=== PATIENT | male | born 2000 | race Caucasian/White ===

== ENCOUNTER 2024-02-05 13:57 | Emergency (ER) | payer BC ==
[~2024-02-05] VITALS: Ht 175.3 cm; Wt 68.7 kg
[2024-02-05 14:02] VITALS: BP 123/82; PULSE 82; TEMP 98.7; O2SAT 99
[2024-02-05 14:42] LABS: BASOPHILS % (AUTO) 0.6 % (0-1); EOSINOPHILS # (AUTO) 0.1 X10'3 (0-0.9); EOSINOPHILS % (AUTO) 2.2 % (0-6); HEMATOCRIT 46.5 % (42.0-52.0); HEMOGLOBIN 16.1 g/dl (14.0-17.9); LYMPHOCYTES # (AUTO) 2.6 X10'3 (1.1-4.8); LYMPHOCYTES % (AUTO) 42.9 % (21-51); MEAN CORPUSCULAR HEMOGLOBIN 29.1 PG (27.0-31.0); MEAN CORPUSCULAR HGB CONC 34.6 g/dL (33.0-36.5); MEAN CORPUSCULAR VOLUME 84.1 FL (78-98); MEAN PLATELET VOLUME 7.4 FL (7.4-10.4); MONOCYTES # (AUTO) 0.7 X10'3 (0-0.9); NEUTROPHILS # (AUTO) 2.6 X10'3 (1.8-7.7); NEUTROPHILS % (AUTO) 43.3 % (42-75); PLATELET COUNT 248 X10'3 (140-440); RED BLOOD COUNT 5.53 X10'6 (4.70-6.10); RED CELL DISTRIBUTION WIDTH 12.9 % (11.5-14.5)
[2024-02-05 14:45] VITALS: RESP 16
[2024-02-05 14:59] LABS: ALBUMIN 3.9 G/DL (3.4-5.0); ANION GAP 7 (8-16); BLOOD UREA NITROGEN 13 MG/DL (7-18); BUN/CREATININE RATIO 11.2 (10.0-20.0); CALCIUM 8.9 MG/DL (8.5-10.1); CHLORIDE 108 MMOL/L (99-107); CREATININE 1.16 MG/DL (0.60-1.10); GLUCOSE 87 MG/DL (70-104); MAGNESIUM 2.1 MG/DL (1.5-2.4); PRO BRAIN NATRIURETIC PEPTIDE < 30 PG/ML (0-125); SODIUM 142 MMOL/L (135-145); eCRCL 98 ML/MIN; eGFR 79 ML/MIN
[2024-02-05] MEDS: mag hydrox/Alum hydrox/simeth 30ml oral suspension PO ONE (16:17)
[2024-02-05] MEDS: LIDOcaine 2% Viscous 15ml cup MM PRN (16:18)
== END 2024-02-05 17:06 | disposition home or self-care (01) ==
LOC: ER 14:00
DX: K20.90 Esophagitis, unspecified without bleeding (principal)
CPT/HCPCS: 36415; 71045; 80048; 83735; 83880; 84484; 85025; 93005; 99285